=== PATIENT | male | born 1950 | race Caucasian/White ===

== ENCOUNTER 2022-02-12 23:46 | Emergency (ER) | payer MEDICARE, OTHER ==
[~2022-02-12] VITALS: Ht 170.2 cm; Wt 86.0 kg
[2022-02-13 00:25] LABS: BASOPHILS # (AUTO) 0.1 X10'3 (0-0.2); BASOPHILS % (AUTO) 0.6 % (0-1); EOSINOPHILS # (AUTO) 0.1 X10'3 (0-0.9); EOSINOPHILS % (AUTO) 0.5 % (0-6); HEMATOCRIT 42.9 % (42.0-52.0); HEMOGLOBIN 14.6 g/dl (14.0-17.9); LYMPHOCYTES # (AUTO) 1.7 X10'3 (1.1-4.8); LYMPHOCYTES % (AUTO) 16.1 % (21-51); MEAN CORPUSCULAR HEMOGLOBIN 30.5 PG (27.0-31.0); MEAN CORPUSCULAR HGB CONC 34.1 g/dL (33.0-36.5); MEAN CORPUSCULAR VOLUME 89.3 FL (78-98); MEAN PLATELET VOLUME 9.1 FL (7.4-10.4); MONOCYTES # (AUTO) 1.2 X10'3 (0-0.9); MONOCYTES % (AUTO) 11.4 % (2-12); NEUTROPHILS # (AUTO) 7.5 X10'3 (1.8-7.7); NEUTROPHILS % (AUTO) 71.4 % (42-75); PLATELET COUNT 186 X10'3 (140-440); RED CELL DISTRIBUTION WIDTH 14.1 % (11.5-14.5); WHITE BLOOD COUNT 10.6 X10'3 (4.5-11.0)
[2022-02-13 00:47] LABS: ALANINE AMINOTRANSFERASE 26 U/L (12-78); ALBUMIN/GLOBULIN RATIO 0.8 (1.1-1.5); ALKALINE PHOSPHATASE 62 IU/L (46-116); ANION GAP 11 (8-16); ASPARTATE AMINO TRANSFERASE 14 U/L (10-37); BILIRUBIN,TOTAL 0.3 MG/DL (0.1-1.0); BLOOD UREA NITROGEN 23 MG/DL (7-18); BUN/CREATININE RATIO 15.4 (5.4-32.0); CALCIUM 8.7 MG/DL (8.5-10.1); CHLORIDE 107 MMOL/L (99-107); CREATININE 1.49 MG/DL (0.60-1.10); GLUCOSE 174 MG/DL (70-104); LIPASE 51 U/L (73-393); SODIUM 142 MMOL/L (135-145); TOTAL CARBON DIOXIDE 24.4 MMOL/L (24-32); TOTAL PROTEIN 6.7 G/DL (6.4-8.2); eGFR 47 ML/MIN
[2022-02-13 02:28] LABS: CLARITY,URINE CLEAR (Clear); COLOR,URINE YELLOW (Yellow); GLUCOSE, URINE NEGATIVE (Neg); KETONES,URINE NEGATIVE (Neg); LEUKOCYTE ESTERASE ,URINE NEGATIVE (Neg); NITRITES, URINE NEGATIVE (Neg); OCCULT BLOOD,URINE SMALL (Neg); PROTEIN,URINE NEGATIVE (Neg); UROBILINOGEN,URINE 0.2 E.U/dL (0.2-1.0)
[2022-02-13 02:29] LABS: UA COLLECTION TYPE CLN CATCH MIDSTREAM
[2022-02-13 02:35] LABS: BACTERIA,URINE FEW /HPF (Neg); RBC,URINE 20-50 /HPF (0-2); SQUAMOUS EPITHELIAL CELL,UR FEW /LPF (FEW); WBC,URINE 0-4 /HPF (0-4)
[2022-02-13 02:36] LABS: AMORPHOUS PHOSPHATES 1+; MUCUS STRANDS FEW /LPF (Neg); TRANSITIONAL EPI CELLS,URINE FEW /HPF
[2022-02-13] MEDS ORDERED: acetaminophen 325mg tablet PO ONE (03:15)
[2022-02-13 03:50] VITALS: BP 141/83
[2022-02-13] MEDS ORDERED: FLO0.4C PO (05:58)
[2022-02-13] MEDS ORDERED: tamsulosin 0.4mg capsule PO ONE (06:00)
[2022-02-13] MEDS ORDERED: ketorolac trometh inj. 60 MG/2 ML VIAL IM ONE (06:00)
== END 2022-02-13 10:52 | disposition home or self-care (01) ==
LOC: ER 23:47
DX: N20.0 Calculus of kidney (principal); N28.1 Cyst of kidney, acquired
CPT/HCPCS: 36415; 74176; 80053; 81001; 83690; 84145; 85025; 99284

== ENCOUNTER 2023-01-06 03:26 | Emergency (ER) | payer MEDICARE, OTHER ==
[~2023-01-06] VITALS: Ht 167.6 cm; Wt 86.6 kg
[2023-01-06 03:35] VITALS: BP 139/93
== END 2023-01-06 04:31 | disposition home or self-care (01) ==
LOC: ER 03:26
DX: K40.90 Unilateral inguinal hernia, without obstruction or gangrene, not specified as recurrent (principal)
CPT/HCPCS: 99281

== ENCOUNTER 2023-01-24 09:02 | Day surgery (SDC) | payer MEDICARE, OTHER ==
[2023-01-18 15:23] LABS: BASOPHILS # (AUTO) 0.1 X10'3 (0-0.2); BASOPHILS % (AUTO) 0.7 % (0-1); EOSINOPHILS % (AUTO) 0.4 % (0-6); LYMPHOCYTES # (AUTO) 2.3 X10'3 (1.1-4.8); LYMPHOCYTES % (AUTO) 21.8 % (21-51); MEAN CORPUSCULAR HEMOGLOBIN 30.7 PG (27.0-31.0); MEAN CORPUSCULAR HGB CONC 33.8 g/dL (33.0-36.5); MEAN CORPUSCULAR VOLUME 90.9 FL (78-98); MEAN PLATELET VOLUME 8.6 FL (7.4-10.4); MONOCYTES # (AUTO) 1.1 X10'3 (0-0.9); MONOCYTES % (AUTO) 9.8 % (2-12); NEUTROPHILS # (AUTO) 7.2 X10'3 (1.8-7.7); NEUTROPHILS % (AUTO) 67.3 % (42-75); PRE OP HEMATOCRIT 45.9 % (42.0-52.0); PRE OP HEMOGLOBIN 15.5 g/dL (14.0-17.9); PRE OP PLATELET COUNT 229 X10'3 (140-440); RED BLOOD COUNT 5.04 X10'6 (4.70-6.10); RED CELL DISTRIBUTION WIDTH 14.6 % (11.5-14.5)
[2023-01-18 15:25] LABS: CLARITY,URINE CLEAR (Clear); COLOR,URINE YELLOW (Yellow); GLUCOSE, URINE NEGATIVE (Neg); KETONES,URINE NEGATIVE (Neg); LEUKOCYTE ESTERASE ,URINE NEGATIVE (Neg); NITRITES, URINE NEGATIVE (Neg); OCCULT BLOOD,URINE NEGATIVE (Neg); PROTEIN,URINE NEGATIVE (Neg); UROBILINOGEN,URINE 0.2 E.U/dL (0.2-1.0)
[2023-01-18 15:27] LABS: UA COLLECTION TYPE CLN CATCH MIDSTREAM
[2023-01-18 15:36] LABS: ALBUMIN 3.7 G/DL (3.4-5.0); ALBUMIN/GLOBULIN RATIO 1.1 (1.1-1.5); ALKALINE PHOSPHATASE 60 IU/L (46-116); BLOOD UREA NITROGEN 23 MG/DL (7-18); BUN/CREATININE RATIO 22.5 (10.0-20.0); CALCIUM 8.7 MG/DL (8.5-10.1); CHLORIDE 105 MMOL/L (99-107); CREATININE 1.02 MG/DL (0.60-1.10); PRE OP ALT 27 U/L (30-65); PRE OP ANION GAP 8 (8-16); PRE OP AST 18 U/L (10-37); PRE OP BILIRUB, TOTAL 0.7 MG/DL (0.0-1.0); PRE OP GLUCOSE 100 MG/DL (70-104); PRE OP POTASSIUM 4.1 MMOL/L (3.4-5.1); PRE OP SODIUM 140 MMOL/L (135-145); TOTAL CARBON DIOXIDE 26.7 MMOL/L (24-32); eGFR 72 ML/MIN
[2023-01-24] VITALS (14 sets, daily range): BP systolic 111–130; BP diastolic 61–84
[~2023-01-24] VITALS: Ht 167.6 cm; Wt 83.9 kg
[~2023-01-24 09:02] MED LIST: NO HOME MEDS; cefazolin 2gm/D5W 100mL 100 ML IV ONE; famotidine 20mg tablet PO ONE; ringers solution, lacted 1,000 ML IV SCH
[2023-01-24] MEDS ORDERED: morphine 2 MG/ML inj. syringe IV PRN (13:00)
[2023-01-24] MEDS ORDERED: ringers solution, lacted 1,000 ML IV SCH (13:00)
[2023-01-24] MEDS ORDERED: morphine 4 MG/ML inj SYRINge IV PRN (13:00)
[2023-01-24] MEDS ORDERED: proCHLORperazine 10 MG/2 ml inj IV PRN (13:00)
[2023-01-24] MEDS ORDERED: ondansetron/PF 4mg/2ml inj IV PRN (13:00)
[2023-01-24] MEDS ORDERED: meperidine/PF 25mg/ml syringe IV PRN ×3 (13:00)
[2023-01-24] MEDS ORDERED: rocuronium 10mg/ml inj IV ONE (13:57)
[2023-01-24] MEDS ORDERED: fentaNYL/PF 50MCG/1 ML 2ML syringe ONE (13:57)
[2023-01-24] MEDS ORDERED: midazolam 1 mg/ML 2ml injection ONE (13:57)
[2023-01-24] MEDS ORDERED: propofol inj 20 ML IV ONE (13:57)
[2023-01-24] MEDS ORDERED: BUPIVAcaine/PF 2.5 mg/ml (0.25%) 30ml vial ONE (14:30)
[2023-01-24] MEDS ORDERED: sevoflurane 250ml liquid IH ONE (14:39)
[2023-01-24] MEDS ORDERED: BUPIVAcaine/PF 2.5 mg/ml (0.25%) 30ml vial IJ ONE (15:11)
[2023-01-24] MEDS ORDERED: glycopyrrolate 0.2mg/ml inj ONE (16:17)
[2023-01-24] MEDS ORDERED: neostigmine methylsulfate 1 MG/ML 10ml vial ONE (16:17)
[2023-01-24] MEDS ORDERED: ondansetron/PF 4mg/2ml inj ONE (16:17)
[2023-01-24] MEDS ORDERED: dexamethasone sod phosphate 4mg/ml inj. ONE (16:17)
--- NOTE | 2023-01-24 16:34 | NUR ---
Received from [facility] TO [facility] 3, accompanied by Anesthesiologist DR LOUIE and report given by Anesthesiolgist. PT PRESENTS WITH 20G LEFTH AND, ABD DRESSING DERMABOND X3 LAP SITES CDI, SPO2 99% 6L MASK, PAIN 09/08, VSS. Addendum: 01/24/23 at 1645 by Nichole Larkin RN RN Amended: Links added.
[2023-01-24] MEDS ORDERED: acetaminophen 1,000mg/100ml IV 100 ML IV ONE (16:38)
--- NOTE | 2023-01-24 18:32 | NUR ---
PT BLADDER SCANNED WITH 25MLS IN BLADDER.
[2023-01-24] MEDS ORDERED: traMADol 50MG tablet PO ONE (18:50)
--- NOTE | 2023-01-24 19:03 | NUR ---
PT BLADDER SCANNED AND HAS 75MLS IN BLADDER Addendum: 01/24/23 at 1903 by Nichole Larkin RN, RN Amended: Links added.
--- NOTE | 2023-01-24 20:04 | NUR ---
DC HOME: ALL DISCHARGE CRITERIA HAS BEEN MET. VSS, PAIN AT TOLERABLE LEVEL. ABLE TO SAFELY AMBULATE AND TRANSFER SELF. IV TAKEN OUT WITHOUT ANY COMPLICATIONS. ALL DISCHARGE INSTRUCTIONS COVERED WITH PATIENT AND ALL QUESTIONS ANSWERED. PATIENT TAKEN OUT VIA WHEELCHAIR TO PERSONAL VEHICLE WHERE FAMILY/FRIEND DROVE PATIENT HOME.
== END 2023-01-24 20:04 | disposition home or self-care (01) ==
LOC: PAS 09:02
PROVIDERS: ATTEND Surgery
DX: K40.90 Unilateral inguinal hernia, without obstruction or gangrene, not specified as recurrent (principal); K42.9 Umbilical hernia without obstruction or gangrene; Z87.891 Personal history of nicotine dependence; Z72.89 Other problems related to lifestyle; Z79.899 Other long term (current) drug therapy
CPT/HCPCS: 36415; 49593; 49650; 80053; 81003; 82948; 85025; 93005; C1781; J0131; J0690; J1100; J2250; J2405; J2704; J2710; J3010; J3490; J7030; J7120; Z7506; Z7508; Z7512; A4215; A4618; C1758